=== PATIENT | male | born 2000 | race Caucasian/White ===

== ENCOUNTER 2021-05-04 19:37 | Emergency (ER) | payer SELFPAY ==
[~2021-05-04] VITALS: Ht 193 cm; Wt 102.3 kg
[2021-05-04 19:48] VITALS: TEMP 98.1
[2021-05-04 21:45] VITALS: BP 125/70; PULSE 84
== END 2021-05-04 21:46 | disposition home or self-care (01) ==
LOC: COL.ER 19:37
DX: S70.11XA Contusion of right thigh, initial encounter (principal); V00.131A Fall from skateboard, initial encounter
CPT/HCPCS: J1885